=== PATIENT | male | born 1950 | race Caucasian/White ===

== ENCOUNTER 2024-01-30 17:28 | Inpatient (IN) | payer MEDICARE, OTHER, SELFPAY ==
[2024-01-30] VITALS (23 sets, daily range): BP systolic 39–125; BP diastolic 17–104; BMI 19.8
--- NOTE | 2024-01-30 15:37 | ED.GENMED ---
History of Present Illness
General
Chief Complaint: Breathing Problem
Source: patient and ambulance crew
Time Seen by Provider: 01/30/24 15:22
Travel History
Have you had any contact with someone who has COVID-19?: No
Do you have any symptoms of coronavirus? Fever > 100 degrees, chills, cough, shortness of breath, sore throat, loss of taste or smell, muscle aches, or headache?: No
History of Present Illness
History of Present Illness:
73-year-old male history of dementia, anxiety, depression presenting with shortness of breath starting today. Per patient, he is also been having a cough for the past 1 week. Patient denies fever, chills, chest pain, or lower extremity swelling.
Patient states that shortness of breath does not worsen with laying flat.
Past History
Past History
ED Past Medical History: HTN and Other (dementia, anxiety, depression, HTN)
Social History
Alcohol: None
Living: long-term
Phy Exam
Physical Exam
Physical Exam:
General: Alert
Head: NCAT
Eyes: clear conjunctiva
Neck: supple
Cardiac: regular rate and rhythm, no murmur
Lungs: Tachypneic. Acute respiratory distress. Diffuse crackles, no wheezing. Speaking in broken sentences.
Abdomen: soft, nondistended nontender. No rebound or guarding.
MSK: no lower extremity edema bilaterally. No deformity
Skin: diaphoretic, pale, cool
Neuro: Alert and oriented x2. no focal deficits
Scores
Heart Failure Risk
Heart Failure Risk Score: Not Applicable
Course
Orders/Labs/Results
Orders:
Orders
01/30/24 15:17
Electrocardiogram (*1) Urgent
Reason for Study: Other
Other Reason for Exam: Respiratory Distress
Cardiac Monitoring- Treatment ONCE
EKG- Treatment ONCE
IV Insert/Care/Rem.- Treatment PRN
O2 Therapy [RESP] Urgent
Titrate/Wean O2 to maintain O2 sat greater than (%): 93
Special Instructions: TO MAINTAIN CONTINUOUS O2 SATS >/= 93%
Pulse Ox/cont/shift [RESP] Urgent
Quantity: 1
Special Instructions: continuous pulse ox
01/30/24 15:22
Portable Chest Xray [CR Chest Portable - 1 View] Urgent
Comment:
Reason For Exam: sob, diffuse crackles
Reason Study Needs to be Portable: Patient Unstable
01/30/24 15:26
Complete Blood Count/With Diff Urgent
Comprehensive Metabolic Panel Urgent
NT-proBNP Urgent
Troponin I Urgent
Venous Blood Gas Urgent
%Oxygen/Room Air: 88
Blood Culture Q30M
IVANNA Source: Blood/Venous
Specimen Description:
Comment: FROM SEPARATE SITES
Blood Culture Q30M
IVANNA Source: Blood/Venous
Specimen Description:
Comment: FROM SEPARATE SITES
01/30/24 15:27
Lactic Acid Q4H
Comment: WITH 1ST SET OF BLOOD CULTURES,CANCEL 2ND LACTIC ACID IF FIRST <2
01/30/24 15:35
COVID-19 Antigen Urgent
Source: Nasal Swab
Influenza A+B Rapid Molecular Urgent
IVANNA Source: Nasal Swab
Specimen Description:
01/30/24 15:37
Acetaminophen [Tylenol] 1,000 mg PO NOW STA
Azithromycin 500 mg/250 ml [Zithromax Infusion] 500 mg in 250 ml IV NOW
CefTRIAXone [Rocephin] 1,000 mg IV NOW STA
01/30/24 15:44
Ipratropium/Albuterol Sulfate [Duoneb] 3 ml .ROUTE .STK-MED ONE
Piperacillin/Tazo 4.5 Gram [Zosyn] 4.5 gram in 100 ml IV NOW
Vancomycin 1 Gram/200 ml [Vancocin] 1 gram in 200 ml IV NOW
01/30/24 15:48
Ipratropium/Albuterol Sulfate [Duoneb] 3 ml INH R NOW ONE
01/30/24 15:57
NORepinephrine 4 MG/250 ML [Levophed] 4 mg in 250 ml .ROUTE .STK-MED
01/30/24 16:00
NORepinephrine 4 MG/250 ML [Levophed] 4 mg in 250 ml IV PER PROTOCOL
Initial dose in mcg/min, then titrate:: 8
Titrate to keep:: MAP > 65 mmHg
Titrate by mcg/min:: 1-2 mcg/min
Frequency of titrations (minutes):: 5
Maximum dose in ICU in mcg/min:: 30
Maximum dose in IMU in mcg/min:: 8
Maximum dose in IVU in mcg/min:: 4
Begin to taper infusion when:: Remained at goal for 4hrs
Taper by mcg/min:: 1-2 mcg/min
Frequency of taper (minutes) if patient maintains goal:: 30
Taper to off?: Yes
If infusion off & no longer maintaining goal:: Contact Provider
01/30/24 16:04
Sodium Bicarbonate 50 meq IV NOW STA
01/30/24 16:05
Sodium Bicarbonate 50 meq IV NOW STA
01/30/24 16:35
Sodium Bicarbonate 50 meq IV NOW STA
01/30/24 16:45
Vasopressin 20 Units/100 ml [Pitressin] 20 units in 100 ml IV PER PROTOCOL
01/30/24 16:54
Dexamethasone Pf [Decadron] 10 mg .ROUTE .STK-MED ONE
PHENYLephrine 50 MG/250 ML NSS [Giovany-Synephrine] 50 mg in 250 ml .ROUTE .STK-MED
01/30/24 16:57
Albuterol Sulfate [Ventolin Nebules] 15 mg INH R NOW STA
01/30/24 16:58
Admit/Transfer Patient As Directed
Co-Sign Provider:
Level of Care: Inpatient admission
Assign to:: ICU
Physician / Group: [email or web address]
Diagnosis: acute hypoxic respiratory failure
Reason for Hospitalization: acute hypoxic respiratory failure
Expected length of stay greater than two midnights?: Yes
ELOS- Estimated Length of Stay in days: 3
I certify the patient meets the requirements for IP care: Yes
Dexamethasone Sod Phos Pf [Decadron] 10 mg IV NOW STA
01/30/24 16:59
Code Status As Directed
Resuscitation Status: Full Code
01/30/24 17:00
Dextrose 5%/Water 1000 ml [D5w] 1,000 ml Sodium Bicarbonate 150 meq IV 120 mls/hr
PHENYLephrine 50 MG/250 ML NSS [Giovany-Synephrine] 50 mg in 250 ml IV PER PROTOCOL
01/30/24 17:[address] See Dose Instructions PO NOW STA
Discontinue all Active Warfarin orders?: Yes
01/30/24 17:[address] Non Medication Order As Directed
Physician Order: start heparin gtt after head CT
01/30/24 17:08
Aspirin 300 mg RECTAL NOW STA
01/30/24 17:10
PTT Urgent
Comment: Obtain baseline before beginning heparin infusion if not already collected
Heparin 3,600 units IV NOW STA
Heparin Protocol- PTT Orders As Directed
PTT per Heparin protocol: -Obtain CBC and baseline PTT - if not already collected.
-Obtain PTT 6 hours from start of infusion. Then, every 6 hours until 2 consecutive
PTT's are therapeutic. Then, PTT Daily.
-With each rate change, obtain PTT every 6 hours until 2 consecutive PTT's are
therapeutic. Then, PTT Daily.
Notify MD As Directed
Notify physician if: PTT is greater than or equal to 200.
01/30/24 17:15
Urinalysis Reflex To Culture Urgent
Heparin 37414 Units/250 ml 25,000 units in 250 ml IV PER PROTOCOL
Weight to be used for heparin protocol in kilograms (kg):: 59.2
Protocol:: Cardiac Tx/Acute Coronary
PTT Goal Range to be used:: PTT 73 to 111 seconds
Order type:: Initial
INITIAL Infusion Dose (UNITS/KG/hr) & then follow protocol:: 12 units/kg/hr
Infusion Dose in UNITS/hr & then follow protocol (UNITS/hr):: 700
INFUSION RATE in mL/hr & then follow protocol (mL/hr):: 7
PTT less than or equal to 64 seconds:: Increase rate by 200 units/hr (+ 2 mL/hr)
PTT 64.1 to 72.9 seconds:: Increase rate by 100 units/hr (+ 1 mL/hr)
PTT 73 to 111 seconds:: Target Range. No change in rate.
PTT 111.1 to 130.9 seconds:: Decrease rate by 100 units/hr (- 1 mL/hr)
PTT 131 to 199.9 seconds:: HOLD for 1 hr. Then decrease rate by 200 units/hr (- 2 mL/hr)
PTT greater than or equal to 200 seconds:: HOLD for 2 hrs & Notify Provider. Then decrease by 200 units/hr (-
2 mL/hr)
Lab follow-up:: Each change, PTT q6h until 2 consecutive are therapeutic. Then PTT
daily.
Lynn Catheter [Catheter- Indwelling] As Directed
Reason for insertion: I&O's Critical Care
Assess insertion reason daily.Remove if no longer applicable: Yes
01/30/24 17:16
Respiratory Culture/Gram Stain Urgent
IVANNA Source: Sputum
Specimen Description:
01/30/24 17:23
Sodium Bicarbonate 50 meq IV NOW STA
EKG PRN [ECG as needed] As Directed
ECG as needed for:: Chest Pain
Rhythm Change
01/30/24 18:00
Cefepime HCl [Maxipime] 1,000 mg IV Q12H
MetroNIDAZOLE 500 MG/100 ML [Flagyl 500 mg] 100 ml IV Q8H
VANCOMYCIN Pharmacy to Dose [VANCOCIN Pharmacy to Dose] 1 each Pharmacy To Prepare [Call Pharmacy To Prepare] 0 ml IV PER PROTOCOL
01/30/24 21:55
Lactic Acid Q4H
Comment: WITH 1ST SET OF BLOOD CULTURES,CANCEL 2ND LACTIC ACID IF FIRST <2
01/30/24 23:00
Troponin I Q8H
01/31/24 06:00
EKG [Electrocardiogram (*1)] IN AM
Reason for Study: Shortness of Breath
Echo 2D MMode Color/Doppler IN AM
Reason for Study: Respiratory failure, Troponin 58
01/31/24 07:00
Troponin I Q8H
01/31/24 08:00
Aspirin 300 mg RECTAL DAILYPRN PRN
Aspirin Chewable [Low Strength Aspirin] 81 mg TUBE DAILY
01/31/24 15:00
Troponin I Q8H
02/01/24 06:00
EKG [Electrocardiogram (*1)] IN AM
Reason for Study: Shortness of Breath
Complete Blood Count/No Diff Q2D
Comment: Notify MD if platelet count is <130,000 or decreases by 50% from baseline
02/02/24 06:00
EKG [Electrocardiogram (*1)] IN AM
Reason for Study: Shortness of Breath
02/03/24 06:00
EKG [Electrocardiogram (*1)] IN AM
Reason for Study: Shortness of Breath
Complete Blood Count/No Diff Q2D
Comment: Notify MD if platelet count is <130,000 or decreases by 50% from baseline
02/05/24 06:00
Complete Blood Count/No Diff Q2D
Comment: Notify MD if platelet count is <130,000 or decreases by 50% from baseline
02/07/24 06:00
Complete Blood Count/No Diff Q2D
Comment: Notify MD if platelet count is <130,000 or decreases by 50% from baseline
02/09/24 06:00
Complete Blood Count/No Diff Q2D
Comment: Notify MD if platelet count is <130,000 or decreases by 50% from baseline
02/11/24 06:00
Complete Blood Count/No Diff Q2D
Comment: Notify MD if platelet count is <130,000 or decreases by 50% from baseline
02/13/24 06:00
Complete Blood Count/No Diff Q2D
Comment: Notify MD if platelet count is <130,000 or decreases by 50% from baseline
02/15/24 06:00
Complete Blood Count/No Diff Q2D
Comment: Notify MD if platelet count is <130,000 or decreases by 50% from baseline
Abnormal Lab Results
01/30/24 01/30/24
15:26 15:27
WBC 22.0 H 10^3/uL
(4.8-10.8)
RBC 4.30 L 10^6/uL
(4.70-6.10)
MCV 97.4 H fL
(80.0-94.0)
MCH 31.6 H pg
(27.0-31.0)
MCHC 32.5 L g/dL
(33.0-37.0)
RDW 14.9 H %
(11.5-14.5)
MPV 11.2 H fL
(7.4-10.4)
Abs Immat Gran (auto) 0.2 H 10^3/uL
(0-0.05)
Absolute Neuts (auto) 18.5 H 10^3/uL
(1.4-6.5)
Absolute Monos (auto) 1.5 H 10^3/uL
(0.1-0.6)
Immature Gran % 0.7 H %
(0-0.5)
Neutrophils % 84.0 H %
(42.2-75.2)
Lymphocytes % 8.0 L %
(20.5-51.1)
VBG pH 7.08 L*
(7.32-7.43)
VBG pCO2 54 H mmHg
(35-48)
VBG HCO3 16.0 L mmol/L
(22-27)
Chloride 97 L mmol/L
(98-107)
Carbon Dioxide 16 L mmol/L
(22-30)
BUN 47 H mg/dl
(9-20)
Creatinine 2.3 H mg/dL
(0.7-1.3)
Glucose 106 H mg/dl
(70-99)
Lactic Acid 12.0 H* mmol/L
(0.7-2.0)
Total Bilirubin 1.5 H mg/dl
(0.2-1.3)
AST 349 H U/L
(17-59)
Troponin I 58.500 H* ng/ml
01/30/24 17:10
01/30/24 15:26
Vital Signs
Initial and Last Documented VS:
Initial Vital Signs
Pulse Resp Pulse Ox
93 25 90
01/30/24 15:18 01/30/24 15:18 01/30/24 15:18
Last Documented Vital Signs
Temp Pulse Resp BP Pulse Ox
100.3 F 153 55 125/104 72
01/30/24 15:32 01/30/24 17:36 01/30/24 17:30 01/30/24 17:35 01/30/24 17:34
Procedures
Intubations
Procedure completed by: Kevin
Method of Intubation: curved blade
Tube size (cm): 7.5
Placement confirmed by: direct visualization
Intubation complications: no complications
Central Line
Right Femoral:
Indication for procedure:: hypotension
Procedure completed by: Kevin
Consent form signed: No
If no, reason: Emergency procedure
Anesthesia: 1% Lidocaine
Central line lumen: triple
Number of attempts: 1
Central line complications: none
Sterile dressing applied?: Yes
Comment
Comment:
Patient presents to the Emergency Department with _shortness of breath
Number and Complexity of Problems Addressed at the Encounter
� Chronic conditions affecting care:
� Acute Exacerbation and/or Progression of Chronic Illness:
� Differential Diagnosis includes: NSTEMI, viral syndrome, pneumonia, RUPERTO, sepsis
Amount and/or Complexity of Data to be Reviewed and Analyzed
� I performed an independent evaluation of and my interpretation is:
EKG: Normal sinus rhythm at 88 bpm with KS [address]
CT:
Xrays: Right lower lobe pneumonia as read by me
Laboratory Studies: acidotic with pH 7.08, bicarb 16, lactic acid 12. NSTEMI with troponin 58.5. Septic with WBC 22
Other:
� Review of other/old records reveals:
� Clinical information was obtained by an independent historian:
� Prescriptions/Medications Considered but not given:
� Further testing considered but not performed:
Risk of Complications and/or Morbidity or Mortality of Patient Management
� Social Determinants of health affecting care:
� Discussion with other providers (PCP, Hospitalists, Consultants, etc): Discussed with Dr. Gonzalez, hospitalist, and Dr. Casey, cotton expert, to accept patient to the ICU. Discussed with Dr. Bonilla, cardiology.
� Escalation of care including admission/observation vs risk of discharge considered: 73-year-old male presenting with cough for the past 1 week with worsening shortness of breath starting today. Patient initially diaphoretic, cold, clammy.
Arrived on nonrebreather SpO2 97%. Due to diffuse crackles on physical exam, concern for possible fluid overload/flash pulmonary edema. Started on BiPAP. Obtain VBG which showed pH 7.08 with bicarb 16. Concerned that tachypnea is related to
metabolic acidosis. Discontinue BiPAP, placed on 4 L nasal cannula. Chest x-ray showed right-sided pneumonia. Ordered Vanco and Zosyn for broad-spectrum antibiotics. Ordered 2 L normal saline for fluid resuscitation. Gave 3 Amps bicarb for
acidosis. Patient became hypotensive. Started Levophed. Concern for NSTEMI lateral ST depression and troponin 58. Discussed with hospitalist and cotton expert who accepted patient to ICU. Discussed with cardiology. Discussed risks vs benefits of
central line with patient. Patient gave verbal consent. While in the ER, patient became more hypotensive and maxed out on Levophed, vasopressin, and phenylephrine. Patient full code according to nursing sheet. Placed central line right femoral vein
with no immediate complications. Patient started to become more bradycardic. Pushed 1 amp bicarb. Soon afterwards, patient became more bradycardic, apneic, and lost pulses at 1724. Started CPR. On initial pulse check, PEA. Gave 4 epi total. On
further pulse checks, in asystole. successfully intubated to 7.5 tube, blood secretions coming throughout and difficult to bag. Resuscitative efforts terminated. Time of called at 1738. Call placed to ophthalmic medical technologist. Discussed with Perico
Mallory, ophthalmic medical technologist, who released body. Notified PCP and [facility] where patient resided. Attempted to notify next of kin, case loader operator, but did not answer phone. Left voicemail
*Critical Care Note
Total Time (30-74mins, 75-104mins- exclusive of procedures): 60 minutes
comment:
Critical care time 60 minutes exclusive of procedures
ED Attending Note
-
Portions of this chart may have been created with voice recognition software.� Occasional wrong word or��sound alike� substitutions may have occurred due to the inherent limitations of voice recognition software.
Discharge Plan
Departure
Patient Disposition: Admit
Date of Disposition: 01/30/24
Time of Disposition: 16:33
Admit to: ICU
Presentation/result/management discussed w/ accepting MD/DO: Hospitalist
Patient with high blood pressure during this ER visit?: No
Condition: Critical
Discharge Problem:
Pneumonia, Sepsis
Interventions
Interventions:
*Risk Screen - Suicide Last Done: 01/30/24 15:18
*General Assessment Last Done: 01/30/24 15:18
*Neglect/Abuse Screening Last Done: 01/30/24 15:18
ED- Fall Risk Assessment Last Done: 01/30/24 15:39
*ED COVID-19 Vaccine History Last Done: 01/30/24 15:18
*Nursing Disposition Last Done: 01/30/24 19:13
ED- Cardiac Assessment Last Done: 01/30/24 15:39
ED- Pulmonary Assessment Last Done: 01/30/24 15:39
Discharge Date and Time
Discharge Date/Time: 01/30/24 19:21
[2024-01-30 15:38] LABS: % Basophils 0.4 % (0-2); % Eosinophils 0.2 % (0-6); % Immature Granulocytes 0.7 % (0-0.5); % Monocytes 6.7 % (1.7-9.3); Absolute Basophils 0.1 10^3/uL (0-0.2); Absolute Immature Granulocytes 0.2 10^3/uL (0-0.05); Absolute Lymphocytes 1.8 10^3/uL (1.2-3.4); Absolute Monocytes 1.5 10^3/uL (0.1-0.6); Absolute Neutrophils 18.5 10^3/uL (1.4-6.5); Hematocrit 41.9 % (39.0-52.0); Hemoglobin 13.6 g/dL (13.0-18.0); Mean Corp Hgb Conc. 32.5 g/dL (33.0-37.0); Mean Corpuscular Hgb 31.6 pg (27.0-31.0); Mean Corpuscular Volume 97.4 fL (80.0-94.0); Mean Platelet Volume 11.2 fL (7.4-10.4); Nucleated Red Blood Cells % 0 % (-); Platelet Count 197 10^3/uL (130-400); Red Cell Dist. Width 14.9 % (11.5-14.5)
[2024-01-30 15:39] LABS: Venous Blood Gas B.E. -14.2 mmol/L (-4 to +4); Venous Blood Gas O2 Sat % 53.9 %; Venous Blood Gas pCO2 54 mmHg (35-48); Venous Blood Gas pO2 42 mmHg (30-50)
[2024-01-30 15:42] LABS: Venous Blood Gas pH 7.08 (7.32-7.43)
[2024-01-30] MEDS: DUONEB 3 ML INH (15:48)
[2024-01-30] MEDS: ZOSYN 100 IV (15:50)
[2024-01-30 15:54] LABS: ALT (SGPT) 49 U/L (0-50); AST (SGOT) 349 U/L (17-59); Albumin 4.2 g/dl (3.5-5.0); Alkaline Phosphatase 64 U/L (38-126); Blood Urea Nitrogen 47 mg/dl (9-20); Calcium 10.2 mg/dl (8.4-10.2); Carbon Dioxide 16 mmol/L (22-30); Chloride 97 mmol/L (98-107); Estimated Creatinine Clearance 23 ml/min; Glucose 106 mg/dl (70-99); Potassium 4.5 mmol/L (3.5-5.1); Sodium 136 mmol/L (135-145); Total Bilirubin 1.5 mg/dl (0.2-1.3); Total Protein 6.7 g/dl (6.3-8.2); eGFR 28.89
[2024-01-30] MEDS: LEVOPHED 250 IV (16:02)
[2024-01-30] MEDS: SODIUM BICARBONATE 50 MEQ IV ×4 (16:07→17:28)
[2024-01-30 16:15] LABS: NT-proBNP > 27000 pg/ml
[2024-01-30 16:18] LABS: COVID-19 Antigen Negative (Negative)
--- NOTE | 2024-01-30 16:33 | HPS.HSE ---
Family Physician
<AC Joseph - Last Filed: 01/30/24 17:13>
-
Family Physician: Rigoberto Kennedy, DO
Chief Complaint
<AC Joseph - Last Filed: 01/30/24 17:13>
-
sob
cough
History of Present Illness
73 year old with PMH for dementia, depression, low back pain, insomnia presented to us with shortness of breath and cough. Patient denied any acute pain. Patient is very hard of hearing. Patient not able to answer any questions appropriately.
on arrival patient is hypoxic, on 7-8l of oxygen. patient cannot tolerate BiPAP. chest x ray with pna. Patient received Zosyn and Vanco. Patient also on vasopressin Levophed for hypotension. Admitting for further management
Medical History
<AC Joseph - Last Filed: 01/30/24 17:13>
Past Medical History
Past Medical History: Reports Other
Additional Past Medical History:
Dementia
Depression
Anemia
Low back pain
Frontotemporal neurocognitive disorder
Insomnia
Past Surgical History: Reports Other
Social History
Unable to obtain full social history at this time due to: Acuity
Family History
Family History: Not pertinent
Allergies / Home Medications
Allergies reflects when Allergies were last updated in [facility].
Home Medications with original date entered in [facility]
Allergy/Medication List:
Allergies
Allergy/AdvReac Type Severity Reaction Status Date / Time
No Known Allergies Allergy Unverified 10/14/23 15:28
Home Medications
acetaminophen 325 mg tablet 650 mg PO Q6H PRN mild pain/temp>100.4 01/30/24
aripiprazole 10 mg tablet 10 mg PO DAILY 01/30/24
bisacodyl 10 mg rectal suppository (Dulcolax (bisacodyl)) 10 mg SC DAILY PRN if mom is ineffective 01/30/24
cholecalciferol (vitamin D3) 25 mcg (1,000 unit) tablet 25 mcg PO DAILY 01/30/24
diclofenac sodium 1 % topical gel 1 ea topical BID 01/30/24
donepezil 5 mg tablet 5 mg PO HS 01/30/24
ferrous sulfate 325 mg (65 mg iron) tablet 325 mg PO DAILY 01/30/24
fluticasone propionate 50 mcg/actuation nasal spray,suspension 1 spray intranasal BID 01/30/24
ipratropium 0.5 mg-albuterol 3 mg (2.5 mg base)/3 mL nebulization soln 3 ml inhalation R Q4 PRN sob 01/30/24
lactated Ringers 1,000 ml IV ONCE 01/30/24
lidocaine 4 % topical patch 1 patch topical DAILY 01/30/24
loperamide 2 mg tablet 2 mg PO Q6H PRN diarrhea 01/30/24
magnesium hydroxide 400 mg/5 mL oral suspension (Milk of Magnesia) 30 ml PO DAILY PRN if no bm x 3 days 01/30/24
melatonin 3 mg tablet 3 mg PO HS 01/30/24
sertraline 50 mg tablet 50 mg PO DAILY 01/30/24
sodium phosphates 19 gram-7 gram/118 mL enema (Fleet Enema) 118 ml SC DAILY PRN if suppository is ineffective 01/30/24
Review of Systems
<AC Joseph - Last Filed: 01/30/24 17:13>
-
Unable to obtain full review of systems at this time due to: Acuity
Physical Exam
<AC Joseph - Last Filed: 01/30/24 17:13>
Vital Signs
Vital Signs
Temp Pulse Resp BP Pulse Ox
100.3 F 86 29 80/60 95
01/30/24 15:32 01/30/24 16:20 01/30/24 16:20 01/30/24 16:20 01/30/24 16:16
Physical Exam
General: Well Developed, Well Nourished and No Apparent Distress
HEENT: NormoCephalic, Moist mucous membranes and Atraumatic
Respiratory: Crackles
Cardiac: S1/S2 and Regular Rhythm; No Murmur or Rub
GI: Soft, Non Tender, Non Distended and Normal Bowel Sounds; No Organomegaly
Rectal: Deferred by Provider
Musculoskeletal: No Clubbing, No Cyanosis and No Edema
Skin: No Rash
Neuro: AO x 3 and Nonfocal/grossly intact
Laboratory Results
<AC Joseph - Last Filed: 01/30/24 17:13>
-
01/30/24 15:26
01/30/24 15:26
Laboratory Results
Lactic Acid 12.0 mmol/L (0.7-2.0) H* 01/30/24 15:27
Total Bilirubin 1.5 mg/dl (0.2-1.3) H 01/30/24 15:26
AST 349 U/L (17-59) H 01/30/24 15:26
ALT 49 U/L (0-50) 01/30/24 15:26
Alkaline Phosphatase 64 U/L (38-126) 01/30/24 15:26
Troponin I 58.500 ng/ml H* 01/30/24 15:26
Data Reviewed
<AC Joseph - Last Filed: 01/30/24 17:13>
-
Diagnostic Radiology: Report Reviewed by me
Lab Data: Labs Reviewed by me
Impression/Plan
<AC Joseph - Last Filed: 01/30/24 17:13>
-
#cardiogenic shock vs/septic shock
# Cough/severe sepsis likely from pneumonia
# Acute hypoxic respiratory failure
-WBC , lactic 22.0, hypotensive, 100.3
-COVID-negative
-Chest x-ray with impression of moderately extensive diffuse coarsening of the interstitial markings throughout both lungs, most prominent at the right lung base. This may reflect acute or chronic inflammatory airspace disease. Given the right
basilar prominence, I suspect this may be interstitial fibrosis with superimposed right basilar pneumonia
-Blood cultures and respiratory culture sent from ER
-IV flagyl, cefepime and vanco continued
-Patient requiring supplemental oxygen to keep sat greater than 92
-Wean as tolerated
-Nebs as needed for short of breath and wheezing
-trend lactic acid
# Acute kidney injury/metabolic acidosis likely dehydration
-Creatinine 2.3, CO2 16
-sodium bicarb continued
# Elevated Trop likely NSTEMI
-Troponin 58.500
-EKG with impression of NORMAL SINUS RHYTHM
CANNOT RULE OUT INFERIOR INFARCT , AGE UNDETERMINED
MARKED ST ABNORMALITY, POSSIBLE ANTEROLATERAL SUBENDOCARDIAL INJURY
-trend BNP
-heparin
-ECHO
-cardiology consulted
# History for depression/anxiety/dementia
-Patient on Abilify, Aricept
-hold until patient fully awake and evaluated by speech
# DVT prophylaxis
-Heparin
# CODE STATUS
-Full code
<Jamar Coto MD - Last Filed: 01/30/24 17:22>
-
I saw and examined the patient.
The PRINCIPAL ENGINEER or PA's note was reviewed and I agree with the note.
Comment:
Patient appears to be slightly lethargic. Able to communicate somewhat states he wants to be full code.
Cardiovascular system S1-S2 appreciated
Coarse breath sounds bilaterally with rales, labored breathing
Abdomen soft and nontender
Bilateral mottling of lower extremities
Pulses not felt but feet are warm
Neuro exam patient is able to move extremities and follow directions
Pupils are equal and reactive, no facial droop
# cardiogenic shock vs/septic shock
Possible severe sepsis likely from pneumonia
Admit to ICU
On 2 pressors adding the third, Levophed, vasopressin and phenylephrine
Bicarb drip at 120 mill per hour
Central line being placed in the ER
Antibiotics cefepime Vanco and Flagyl
Blood cultures
Urinalysis and culture
Sputum culture if possible
Trend Lactate
# Acute hypoxic respiratory failure
-COVID-negative
-Chest x-ray with impression of moderately extensive diffuse coarsening of the interstitial markings throughout both lungs, most prominent at the right lung base. This may reflect acute or chronic inflammatory airspace disease. Given the right
basilar prominence, I suspect this may be interstitial fibrosis with superimposed right basilar pneumonia
-Blood cultures and respiratory culture sent from ER
-IV flagyl, cefepime and vanco
-Patient requiring supplemental oxygen to keep sat greater than 92
-Nebs as needed for short of breath and wheezing
-Decadron 10 mg now and 6 Q6H
-Repeat ABG
# Pneumonia-aspiration versus other
# Acute kidney injury/metabolic acidosis likely dehydration
-Creatinine 2.3, CO2 16
-sodium bicarb gtt
-IVF
-Place Lynn
# NSTEMI
-Troponin 58.500, follow trend
-EKG with impression of NORMAL SINUS RHYTHM
CANNOT RULE OUT INFERIOR INFARCT , AGE UNDETERMINED
MARKED ST ABNORMALITY, POSSIBLE ANTEROLATERAL SUBENDOCARDIAL INJURY
-heparin drip
-ECHO when possible. If ejection fraction is less than 30% stop IV fluids and give a dose of Lasix to see if the blood pressure improves.
-Aspirin ordered
-Statin when able
-Cannot get beta-blockers because of hypotension
-cardiology consulted
# Lactic acidosis
# Elevated AST-follow
Possible shock liver
# Likely has COPD
# History for depression/anxiety/dementia
-Patient on Abilify, Aricept
-hold until patient fully awake and evaluated by speech
# DVT prophylaxis
-Heparin gtt
# CODE STATUS
-Full code
Overall prognosis is poor patient is at high risk for mortality given multiple organ failure, hypotension, non-STEMI, mottling of lower extremities. I cannot reach any family as no one is listed and no numbers available.
Case discussed with ER attending, pharmacy, ER nursing, cardiology at bedside
Critical care time 55 minutes
[2024-01-30] MEDS: PITRESSIN 100 IV (16:40)
[2024-01-30] MEDS: VANCOCIN 200 IV (16:46)
[2024-01-30] MEDS: NEO-SYNEPHRINE 250 IV (17:05)
--- NOTE | 2024-01-30 17:05 | CON.CAR ---
Consultation
Consultation Request
Date/Time Consultation Requested: 01/30/2024 at 1600 hrs
Date/Time Consultation Performed: 01/30/2024 at 1600 hrs
Requesting Provider: Jamar Coto MD
Performing Provider: Nate Bonilla MD
Reason for Consultation: Elevated troponin
Medical History
-
Chief Complaint: Transferred from [facility] for evaluation of dyspnea
History of Present Illness:
The patient was brought to the emergency room for evaluation of dyspnea. The patient has become progressively hypotensive and is now on pressors. He was not able to provide history.
Past Medical History
Past Medical History: Other (Dementia)
Social History
Living: [facility]
Family History
Family History: Unable to Obtain
Allergies / Home Medications
Allergy/AdvReac Type Severity Reaction Status Date / Time
No Known Allergies Allergy Unverified 10/14/23 15:28
�Medication �Instructions �Recorded �Confirmed �Type
acetaminophen 325 mg tablet 650 mg PO Q6H PRN mild 01/30/24 01/30/24 History
pain/temp>100.4
aripiprazole 10 mg tablet 10 mg PO DAILY 01/30/24 01/30/24 History
bisacodyl 10 mg rectal suppository 10 mg ID DAILY PRN if mom is 01/30/24 01/30/24 History
(Dulcolax (bisacodyl)) ineffective
cholecalciferol (vitamin D3) 25 25 mcg PO DAILY 01/30/24 01/30/24 History
mcg (1,000 unit) tablet
diclofenac sodium 1 % topical gel 1 ea topical BID 01/30/24 01/30/24 History
donepezil 5 mg tablet 5 mg PO HS 01/30/24 01/30/24 History
ferrous sulfate 325 mg (65 mg 325 mg PO DAILY 01/30/24 01/30/24 History
iron) tablet
fluticasone propionate 50 1 spray intranasal BID 01/30/24 01/30/24 History
mcg/actuation nasal
spray,suspension
ipratropium 0.5 mg-albuterol 3 mg 3 ml inhalation R Q4 PRN sob 01/30/24 01/30/24 History
(2.5 mg base)/3 mL nebulization
soln
lactated Ringers 1,000 ml IV ONCE 01/30/24 01/30/24 History
lidocaine 4 % topical patch 1 patch topical DAILY 01/30/24 01/30/24 History
loperamide 2 mg tablet 2 mg PO Q6H PRN diarrhea 01/30/24 01/30/24 History
magnesium hydroxide 400 mg/5 mL 30 ml PO DAILY PRN if no bm x 3 01/30/24 01/30/24 History
oral suspension (Milk of Magnesia) days
melatonin 3 mg tablet 3 mg PO HS 01/30/24 01/30/24 History
sertraline 50 mg tablet 50 mg PO DAILY 01/30/24 01/30/24 History
sodium phosphates 19 gram-7 118 ml ID DAILY PRN if suppository 01/30/24 01/30/24 History
gram/118 mL enema (Fleet Enema) is ineffective
Review of Systems
-
Unable to obtain full review of systems at this time due to: Dementia
Physical Exam
Vital Signs
Temp Pulse Resp BP Pulse Ox
100.3 F 65 20 46/17 95
01/30/24 15:32 01/30/24 16:31 01/30/24 16:31 01/30/24 16:31 01/30/24 16:16
Lab Results
01/30/24 15:26
01/30/24 15:26
Troponin I 58.500 ng/ml H* 01/30/24 15:26
Haf-O-Npcxwqrwxez Pept > 29126 pg/ml 01/30/24 15:26
Physical Exam
General: Other (ill poorly responsive older gentleman)
HEENT: Moist Mucous Membranes
Respiratory: Rhonchi
Cardiac: S1/S2, Regular Rhythm and Other (no edema, no JVD)
GI: Soft and Non Tender
Musculoskeletal: No Edema
Skin: Warm and Dry
Neuro: Other (not responding to my questions, blank stare)
Impression / Plan
-
73-year-old gentleman with dementia who is unable to provide history presents for the evaluation of breathing problem/dyspnea. Progressive hypotension has been found. He has leukocytosis with left shift and severe lactic acidosis. proBNP is
markedly elevated in the setting of renal failure. Troponin is markedly abnormal at 58. Chest x-ray is concerning for interstitial fibrosis and right basilar pneumonia but not particularly suspicious for heart failure. Differential diagnosis
includes includes pneumonia with sepsis and secondary myocardial infarction/type II MO. Differential also includes primary non-ST elevation myocardial infarction but there is no history of chest discomfort. His hypotension may be on the basis of
sepsis but cardiogenic shock cannot be entirely excluded. Given his dementia we will need to take a conservative approach from the cardiovascular perspective with supportive care but not catheterization or mechanical support. Will trend troponins
and check an echocardiogram. Provide aspirin. Prognosis guarded and poor. Agree with with resuscitative efforts with fluid, pressors, and ventilatory support if necessary.
Data Reviewed
-
EKG: Tracing Personally Visualized and interpreted (Sinus with marked ST and T wave changes some of which are exaggerated by motion/respiratory artifact but there appears to be lateral ST depression and possibly inferior ST depression no pathologic
ST elevation)
Radiology: Image Personally Visualized and interpreted (Diffuse interstitial markings. More prominent at the right base.) and Report Reviewed by me (Radiology is suspicious of interstitial fibrosis with superimposed right basilar pneumonia)
[2024-01-30] MEDS: VENTOLIN NEBULES 15 MG INH (17:15)
--- NOTE | 2024-01-30 18:41 | W.PN.UPDATE ---
Update Note
Progress Note Update
Patient had a cardiac arrest.
Then back to see the patient. Patient was started on CPR for initial bradycardia and then PEA and then asystole
Received bicarb pushes, rounds of epinephrine and atropine
Cardiology also arrived
Patient had no pulse and code was called. We are
Will notify technical communication teacher.
== END 2024-01-30 19:26 | disposition expired | DRG 871 ==
LOC: ED 17:28
PROVIDERS: ADMITTING PHYSICIAN Hospitalist; EMERGENCY PHYSICIAN Emergency Medicine; FAMILY PHYSICIAN Internal Medicine
DX: A41.02 Sepsis due to Methicillin resistant Staphylococcus aureus (principal); I21.4 Non-ST elevation (NSTEMI) myocardial infarction; J69.0 Pneumonitis due to inhalation of food and vomit; R65.21 Severe sepsis with septic shock; J96.01 Acute respiratory failure with hypoxia; N17.9 Acute kidney failure, unspecified; E87.20 Acidosis, unspecified; F03.94 Unspecified dementia, unspecified severity, with anxiety; R57.0 Cardiogenic shock; I46.9 Cardiac arrest, cause unspecified
CPT/HCPCS: 71045; 80053; 82805; 83605; 83880; 84484; 85025; 87040; 87147; 87186; 87205; 87502; 87811; 93005; 94660